=== PATIENT | male | born 1995 ===

== ENCOUNTER 2016-09-18 08:24 | Emergency (ER) | payer OTHER ==
[2016-09-18 08:37] VITALS: TEMP 98; O2SAT 100
[2016-09-18 08:51] VITALS: BMI 24.5
--- NOTE | 2016-09-18 09:36 | ED PDOC ---
Arrival/HPI - General Chief Complaint: Cough, Cold, Congestion Time Seen by Provider: 09/18/16 08:51 Historian: Patient - History of Present Illness Narrative History of Present Illness (Text): 09/18/16 09:32 Patient reports h/o seasonal allergies and asthma, reports several days of dyspnea and wheezing. Episode apparently precipitated by seasonal allergies. Reports not taking any medications for his symptoms due to lack of insurance. Patient has 1 previous history of emergency department visits to this hospital. Patient has no previous history of hospital admissions. Patient was never been intubated in the past. Otherwise, (-) fever; (-) cough; (-) sputum production, (-) chest pain. PMD none Past Medical History - Provider Review Nursing Documentation Reviewed: Yes - Pulmonary Hx Asthma: Yes - Psychiatric Hx Substance Use: Yes - Past Surgical History Past Surgical History: No Previous - Suicidal Assessment Feels Threatened In Home Enviroment: No Family/Social History - Physician Review Nursing Documentation Reviewed: Yes Family/Social History: No Known Family HX Smoking Status: Never Smoked Hx Alcohol Use: No Hx Substance Use: Yes Substance used: marijuana Hx Substance Use Treatment: No Allergies/Home Meds Allergies/Adverse Reactions: Allergies No Known Allergies Allergy (Verified 09/18/16 08:56) Review of Systems - Review of Systems Constitutional: Normal. absent: Fatigue, Weight Change, Fevers Eyes: Normal ENT: Normal. absent: Hearing Changes, Tinnitus, TMJ Pain Respiratory: Normal, Cough, Wheezing. absent: SOB, Sputum Cardiovascular: Normal. absent: Chest Pain, Palpitations, Edema Musculoskeletal: Normal. absent: Arthralgias, Back Pain, Neck Pain Skin: Normal. absent: Rash, Pruritis, Skin Lesions Physical Exam - Physical Exam Narrative Physical Exam (Text): 09/18/16 09:35 GENERAL APPEARANCE: Patient is awake, alert, oriented x 3, in no acute distress. SKIN: Warm, dry; (-) cyanosis. EYES: (-) conjunctival pallor. ENMT: Mucous membranes moist. Airway patent: (-) stridor. Pharynx: (-) swelling, (-) erythema. NECK: (-) tenderness, (-) stiffness, (-) lymphadenopathy. CHEST AND RESPIRATORY: (+) faint bilateral expiratory wheezing to the lower lobes; (-) rales, (-) rhonchi, (-) rub; breath sounds equal bilaterally. HEART AND CARDIOVASCULAR: (-) irregularity; (-) murmur, (-) gallop. ABDOMEN AND GI: Soft; (-) tenderness. EXTREMITIES: (-) deformity, (-) edema. NEURO AND PSYCH: Mental status as above; (-) focal findings. Vital Signs Temp Pulse Resp BP Pulse Ox 09/18/16 10:25 72 16 99/55 L 100 09/18/16 08:36 98.0 F 78 18 116/80 100 Medical Decision Making ED Course and Treatment: 09/18/16 09:36 21 yo M with h/o asthma and seasonal allergies presents with wheezing. Given duoneb x2 and prednisone 40 mg po. On re-evaluation, patient reports significant improvement, denies any SOB or chest pain. On exam, lungs are clear with no wheezing. Based on history, exam and diagnostic results plan will be for outpatient f/u with the clinic. Rx provided. Patient states he fully agrees with and understands discharge instructions. States that he agrees with the plan and disposition. Verbalized and repeated discharge instructions and plan. I have given the patient opportunity to ask any additional questions. Follow up with the clinic in 1-2 days without fail. Advised to take medication as prescribed, take otc zyrtec for his seasonal allergies. Return to the emergency room at any time for any new or worsening symptoms. - Medication Orders Current Medication Orders: Discontinued Medications Albuterol/Ipratropium (Duoneb 3 Mg/0.5 Mg (3 Ml) Ud) 3 ml IH Q15M MODESTA Stop: 09/18/16 10:01 Last Admin: 09/18/16 10:10 Dose: 3 ml Prednisone (Prednisone Tab) 40 mg PO STAT STA Stop: 09/18/16 09:32 Last Admin: 09/18/16 09:40 Dose: 40 mg - PA / CONVEYOR MAN / Resident Statement MD/DO has reviewed & agrees with the documentation as recorded. Disposition/Present on Arrival - Present on Arrival Any Indicators Present on Arrival: No History of DVT/PE: No History of Uncontrolled Diabetes: No Urinary Catheter: No History of Decub. Ulcer: No History Surgical Site Infection Following: None - Disposition Have Diagnosis and Disposition been Completed?: Yes Diagnosis: Asthma Disposition: HOME/ ROUTINE Disposition Time: 11:00 Patient Plan: Discharge Condition: IMPROVED Discharge Instructions (ExitCare): Asthma (ED), Allergic Rhinitis (ED) Print Language: ARABIC Additional Instructions: Thank you for letting us take care of you today. You were treated for asthma, history of seasonal allergies. The emergency medical care you received today was directed at your acute symptoms. If you were prescribed any medication, please fill it and take as directed. Take over the counter zyrtec for allergy symptoms. It may take several days for your symptoms to resolve. Return to the Emergency Department if your symptoms worsen, do not improve, or if you have any other problems. Please contact the neck in 2 days for re-evaluation and follow up. Bring any paperwork you were given at discharge with you along with any medications you are taking to your follow up visit. Our treatment cannot replace ongoing medical care by a primary care provider (PCP) outside of the emergency department. Thank you for allowing the [facility] team to be part of your care today. Prescriptions: Albuterol HFA [Ventolin HFA 90 mcg/actuation (8 g)] 2 puff IH [id number] #1 puff predniSONE [predniSONE Tab] 40 mg PO DAILY #8 tab Referrals: PCP,NO [Primary Care Provider] - Follow up with primary Forms: WORK NOTE
[2016-09-18] MEDS: Albuterol-Ipratrop 3 mg / 0.5 (3 ml) UD IH SCH ×2 (09:40→10:10)
[2016-09-18 11:11] VITALS: BP 99/55; PULSE 72; RESP 16
== END 2016-09-18 11:37 | disposition home or self-care (01) ==
LOC: ED 08:24
DX: J45.909 Unspecified asthma, uncomplicated (principal)

== ENCOUNTER 2017-09-04 23:21 | Emergency (ER) | payer SELFPAY ==
[2017-09-04 23:22] VITALS: BMI 24.5
[2017-09-04] MEDS: Albuterol-Ipratrop 3 mg / 0.5 (3 ml) UD IH SCH ×2 (23:40→23:53)
--- NOTE | 2017-09-04 23:48 | ED PDOC ---
Arrival/HPI <Aurelio Luong - Last Filed: 09/05/17 00:27> - General Historian: Patient - History of Present Illness Time/Duration: 4-6 hours Symptom Onset: Gradual Symptom Course: Unchanged Quality: Other (Itching) Activities at Onset: Light Context: Home <Miles Benitez - Last Filed: 09/05/17 14:30> - General Time Seen by Provider: 09/04/17 23:40 - History of Present Illness Narrative History of Present Illness (Text): 09/04/17 23:41 22 year old male, with past medical history of asthma and seasonal allergies, presents to the Emergency department complaining of itching eyes, throat, and coughing for past 4 to 5 days. Patient informs associated shortness of breath with wheezing since this evening prompting him to the Emergency department for evaluation. Patient denies any fever, chills, nausea, vomiting, diarrhea, chest pain, abdominal pain or any other complaints. Patient informs frequent travel for past year. (Miles Benitez) Past Medical History - Provider Review Nursing Documentation Reviewed: Yes - Pulmonary Hx Asthma: Yes - Psychiatric Hx Substance Use: Yes - Past Surgical History Past Surgical History: No Previous - Suicidal Assessment Feels Threatened In Home Enviroment: No <Miles Benitez - Last Filed: 09/05/17 14:30> Family/Social History - Physician Review Nursing Documentation Reviewed: Yes Family/Social History: No Known Family HX Smoking Status: Never Smoked Hx Alcohol Use: No Hx Substance Use: Yes Substance used: marijuana Hx Substance Use Treatment: No <Miles Benitez - Last Filed: 09/05/17 14:30> Allergies/Home Meds <Aurelio Luong - Last Filed: 09/05/17 00:27> <Miles Benitez - Last Filed: 09/05/17 14:30> Allergies/Adverse Reactions: Allergies No Known Allergies Allergy (Verified 09/18/16 08:56) Review of Systems - Physician Review All systems were reviewed & negative as marked: Yes - Review of Systems Constitutional: Normal. absent: Fevers Eyes: Other (Itching eyes) ENT: Other (Itching throat) Respiratory: SOB, Cough, Wheezing Cardiovascular: absent: Chest Pain Gastrointestinal: absent: Abdominal Pain, Diarrhea, Nausea, Vomiting <Miles Benitez - Last Filed: 09/05/17 14:30> Physical Exam Vital Signs Reviewed: Yes Temperature: Afebrile Blood Pressure: Normal Pulse: Regular Respiratory Rate: Normal Appearance: Positive for: Well-Appearing, Non-Toxic, Comfortable Pain Distress: None Mental Status: Positive for: Alert and Oriented X 3 - Systems Exam Head: Present: Atraumatic, Normocephalic Pupils: Present: PERRL, Other (no conjunctivitis) Extroacular Muscles: Present: EOMI Conjunctiva: Present: Normal Ears: Present: NORMAL TM, Normal Canal. No: Erythema Mouth: Present: Moist Mucous Membranes Pharnyx: No: ERYTHEMA, EXUDATE, TONSILS ENLARGED Nose (External): Present: Atraumatic. No: Abrasion, Contusion Nose (Internal): Present: Normal Inspection, No Active Bleeding, Rhinorrhea. No : Septal Hematoma, Epistaxis Neck: Present: Normal Range of Motion. No: Lymphadenopathy Respiratory/Chest: Present: Wheezes, Decreased Breath Sounds. No: Respiratory Distress, Accessory Muscle Use, Rales, Retracting, Rhonchi, Tachypneic, Tender to Palpation Cardiovascular: Present: Regular Rate and Rhythm, Normal S1, S2. No: Murmurs Abdomen: No: Tenderness, Distention, Peritoneal Signs Back: Present: Normal Inspection Upper Extremity: Present: Normal Inspection. No: Cyanosis, Edema Lower Extremity: Present: Normal Inspection. No: Edema Neurological: Present: GCS=15, CN II-XII Intact, Speech Normal, Motor Func Grossly Intact, Gait Normal, Memory Normal Skin: Present: Warm, Dry, Normal Color. No: Rashes Psychiatric: Present: Alert, Oriented x 3, Normal Insight, Normal Concentration <Miles Benitez - Last Filed: 09/05/17 14:30> Vital Signs Temp Pulse Resp BP Pulse Ox 09/04/17 23:48 98.0 F 66 18 114/61 100 Medical Decision Making <Aurelio Luong - Last Filed: 09/05/17 00:27> - RAD Interpretation Supervisor Stone: Radiologist <Miles Benitez - Last Filed: 09/05/17 14:30> ED Course and Treatment: 09/04/17 23:50 Impression: 22 year old male presents to the Emergency department for itching eyes, throat, cough, and shortness of breath associated with wheezing. Plan -- Benadryl/duonebs -- Steroids -- Chest X-ray -- Reassess and disposition 09/05/17 01:08 -Pt. has poor techniques on the using the peak floor and unable to complete one , walking around and feeling completely relief. -Wheezing resolved, feeling completely resoled, itching resolved. -Discharge home with xyzall, prednisone, flonase, azithromycin, albuterol MDI, stay hydrated, wear sunglasses, follow up with your own pmd and muffler tender within 2 days, return to the ER for any new or worsening signs or symptoms. ( Miles Benitez) - RAD Interpretation Radiology Orders: 09/04/17 23:49 CHEST PORTABLE [RAD] Stat 09/04/17 23:49 CHEST PORTABLE [RAD] Stat no active disease (Miles Benitez) - Medication Orders Current Medication Orders: Discontinued Medications Albuterol/Ipratropium (Duoneb 3 Mg/0.5 Mg (3 Ml) Ud) 3 ml IH Q15M MODESTA Stop: 09/05/17 00:16 Last Admin: 09/05/17 00:10 Dose: 3 ml Azithromycin (Zithromax) 500 mg PO STAT STA PRN Reason: Protocol Stop: 09/04/17 23:50 Last Admin: 09/04/17 23:55 Dose: 500 mg Diphenhydramine HCl (Benadryl) 50 mg IM STAT STA Stop: 09/04/17 23:50 Last Admin: 09/04/17 23:55 Dose: 50 mg IM Administration Charges Document 09/04/17 23:55 CNR (Rec: 09/04/17 23:55 CNR [id number]) Charges for Administration # of IM Administrations 1 Prednisone (Prednisone Tab) 60 mg PO STAT ONE Stop: 09/04/17 23:50 Last Admin: 09/04/17 23:55 Dose: 60 mg - PA / CHEMICAL TANK WORKER / Resident Statement / has reviewed & agrees with the documentation as recorded. <Aurelio Luong - Last Filed: 09/05/17 00:27> - PA / CHEMICAL TANK WORKER / Resident Statement / has reviewed & agrees with the documentation as recorded. - Scribe Statement The provider has reviewed the documentation as recorded by the Scribe <Miles Benitez - Last Filed: 09/05/17 14:30> - Scribe Statement Zhang Love. All medical record entries made by the Scribe were at my direction and personally dictated by me. I have reviewed the chart and agree that the record accurately reflects my personal performance of the history, physical exam, medical decision making, and the department course for this patient. I have also personally directed, reviewed, and agree with the discharge instructions and disposition. (Miles Bneitez) Disposition/Present on Arrival <Aurelio Luong - Last Filed: 09/05/17 00:27> - Present on Arrival Any Indicators Present on Arrival: No History of DVT/PE: No History of Uncontrolled Diabetes: No Urinary Catheter: No History of Decub. Ulcer: No History Surgical Site Infection Following: None - Disposition Have Diagnosis and Disposition been Completed?: Yes Disposition Time: 00:23 Patient Plan: Discharge <Miles Benitez - Last Filed: 09/05/17 14:30> - Disposition Diagnosis: Asthma exacerbation, Seasonal allergies Disposition: HOME/ ROUTINE Condition: IMPROVED Additional Instructions: -Discharge home with xyzall, prednisone, flonase, azithromycin, albuterol MDI, stay hydrated, wear sunglasses, follow up with your own pmd and muffler tender within 2 days, return to the ER for any new or worsening signs or symptoms. Prescriptions: Albuterol Sulfate [Proair Respiclick] 2 puff IH QID PRN #1 aer.[id number] PRN Reason: Other Azithromycin 250 mg PO DAILY #4 tab Fluticasone Propionate [Flonase] 1 spr NS DAILY #1 bot Levocetirizine Dihydrochloride [Xyzal] 5 mg PO DAILY PRN #14 tablet PRN Reason: Other Prednisone 50 mg PO DAILY #4 tab Referrals: Jorge Carolina DO [Staff Provider] - [place] up [place] [facility] [place] - Follow up with primary Forms: WORK NOTE
[2017-09-04 23:49] VITALS: BP 114/61; PULSE 66; RESP 18; TEMP 98; O2SAT 100
[2017-09-04] MEDS ORDERED: DiphenhydrAMINE 50 mg/ml Inj IM STA (23:49)
[2017-09-05] MEDS: Albuterol-Ipratrop 3 mg / 0.5 (3 ml) UD IH SCH (00:10)
--- NOTE | 2017-09-05 08:31 | RAD ---
HISTORY: medical clearance COMPARISON: No prior. FINDINGS: LUNGS: No active pulmonary disease. PLEURA: No significant pleural effusion identified, no pneumothorax apparent. CARDIOVASCULAR: Normal. OSSEOUS STRUCTURES: No significant abnormalities. VISUALIZED UPPER ABDOMEN: Normal. OTHER FINDINGS: None. IMPRESSION: No active disease.
== END 2017-09-05 01:14 | disposition home or self-care (01) ==
LOC: ED 23:21
DX: J45.901 Unspecified asthma with (acute) exacerbation (principal); J30.2 Other seasonal allergic rhinitis
CPT/HCPCS: 71045; 96372; 99284; J1200

== ENCOUNTER 2017-10-11 08:15 | Emergency (ER) | payer OTHER ==
[2017-10-11 08:15] VITALS: BMI 24.5
[2017-10-11] MEDS ORDERED: Albuterol 0.083% Inhal Sol (2.5 mg/3 mL) UD INH STA (08:38)
--- NOTE | 2017-10-11 08:45 | ED PDOC ---
Arrival/HPI <Gagandeep Savage - Last Filed: 10/11/17 10:11> - History of Present Illness Symptom Onset: Gradual Symptom Course: Worsening Activities at Onset: Rest Context: Home <Erik Hein - Last Filed: 10/11/17 13:47> - General Chief Complaint: Cough, Cold, Congestion Time Seen by Provider: 10/11/17 08:30 - History of Present Illness Narrative History of Present Illness (Text): 10/11/17 08:40 Pt is 22 yo M with PMH of asthma and seasonal allergies presents to ED with a shortness of breath and nasal congestion. Patient also complains of a dry cough. Patient states that on average he gets short of breath once a week and wakes up at night once a week with coughs Patient states that symptoms have been intermittent over the last week. Patient states that he came to the ED a few weeks ago and received a breathing treatment which helped his symptoms. Patient states that he has not had an inhaler for year due to cost. But states that he recently got insurance and will be able to get prescription medicines. Patient denies CP, n/v/d, abdominal pain, fever, chills, BACA, or dizziness. (Gagandeep Savage) Past Medical History - Infectious Disease Hx of Infectious Diseases: None - Pulmonary Hx Asthma: Yes - Psychiatric Hx Substance Use: Yes - Past Surgical History Past Surgical History: No Previous - Suicidal Assessment Feels Threatened In Home Enviroment: No <Gagandeep Savage - Last Filed: 10/11/17 10:11> - Provider Review Nursing Documentation Reviewed: Yes - Travel History Have you recently traveled outside [place] w/in the past 3 mons?: No - Past History Past History: No Previous <Erik Hein - Last Filed: 10/11/17 13:47> Family/Social History Family/Social History: No Known Family HX Smoking Status: Never Smoked Hx Alcohol Use: No Hx Substance Use: Yes Substance used: marijuana Hx Substance Use Treatment: No <Gagandeep Savage - Last Filed: 10/11/17 10:11> - Physician Review Nursing Documentation Reviewed: Yes <Erik Hein - Last Filed: 10/11/17 13:47> Allergies/Home Meds <Gagandeep Savage - Last Filed: 10/11/17 10:11> <Erik Hein - Last Filed: 10/11/17 13:47> Allergies/Adverse Reactions: Allergies No Known Allergies Allergy (Verified 10/11/17 08:24) Review of Systems - Physician Review All systems were reviewed & negative as marked: Yes (12 point ROS reviewed and is negative other than what is stated in HPI.) <JanetteGagandeep - Last Filed: 10/11/17 10:11> - Review of Systems Constitutional: Normal Eyes: Normal ENT: Rhinorrhea Respiratory: SOB, Cough Cardiovascular: Normal Gastrointestinal: Normal Genitourinary Male: Normal Musculoskeletal: Normal Skin: Normal Neurological: Normal Endocrine: Normal Hemo/Lymphatic: Normal Psychiatric: Normal <Erik Hein - Last Filed: 10/11/17 13:47> Physical Exam Vital Signs Reviewed: Yes Temperature: Afebrile Blood Pressure: Normal Pulse: Regular Respiratory Rate: Normal Appearance: Positive for: Non-Toxic Pain Distress: None Mental Status: Positive for: Alert and Oriented X 3 - Systems Exam Head: Present: Atraumatic, Normocephalic Pupils: Present: PERRL Extroacular Muscles: Present: EOMI Conjunctiva: Present: Normal Mouth: Present: Moist Mucous Membranes Neck: Present: Normal Range of Motion Respiratory/Chest: Present: Clear to Auscultation. No: Wheezes, Rales, Rhonchi Cardiovascular: Present: Regular Rate and Rhythm, Normal S1, S2. No: Murmurs, Rub, Gallop, Muffled Abdomen: No: Tenderness, Distention, Rebound, Guarding Upper Extremity: Present: Normal Inspection. No: Cyanosis, Edema Lower Extremity: Present: Normal Inspection. No: Edema Neurological: Present: GCS=15, CN II-XII Intact, Speech Normal Skin: Present: Warm, Dry, Normal Color. No: Rashes Psychiatric: Present: Alert, Oriented x 3, Normal Insight, Normal Concentration <Gagandeep Savage - Last Filed: 10/11/17 10:11> Vital Signs Temp Pulse Resp BP Pulse Ox 10/11/17 10:13 98.8 F 72 16 128/74 98 10/11/17 08:21 97.5 F L 85 18 130/78 99 Medical Decision Making <Gagandeep Savage - Last Filed: 10/11/17 10:11> Re-evaluation Time: 12:00 Reassessment Condition: Improved <Erik Hein - Last Filed: 10/11/17 13:47> ED Course and Treatment: 10/11/17 09:12 22 yo M presents with dyspnea and nasal congestion. Plan: - Albuterol - Claritin - Reassess and disposition 10/11/17 09:59 Discussed importance with close PMD follow up with patient and medication compliance. Patient acknowledged and agreed. Explained to patient if symptoms worsen, please return to ED. (Gagandeep Savage) A 22 year old male with shortness of breath and congestion. In agreement with resident note, which includes further HPI details. Patient was seen and evaluated with resident, came up with plan and treatment together. I performed the hx and physical exam of the patient and discussed their mgt with the RESIDENT. I reviewed the RESIDENT's NOTE and agree with the assessment and plan of care. lung re-exam: CTA b/l, no w/r/r, no accessory muscle use noted, no tachypenia pt is comfortable pt is not in any distress pt is made aware of his medical results pt is encouraged closing his windows when sleeping at night, prevent pollen exposure pt is encouraged outpt follow up pt will be discharged home (Erik Hein) - Medication Orders Current Medication Orders: Discontinued Medications Albuterol Sulfate (Albuterol 0.083% Inhal Mee (2.5 Mg/3 Ml) Ud) 2.5 mg INH STAT STA Stop: 10/11/17 08:39 Last Admin: 10/11/17 08:51 Dose: 2.5 mg Loratadine (Claritin) 10 mg PO ONCE ONE Stop: 10/11/17 08:39 Last Admin: 10/11/17 08:51 Dose: 10 mg Prednisone (Prednisone Tab) 40 mg PO STAT STA Stop: 10/11/17 09:26 Last Admin: 10/11/17 09:41 Dose: 40 mg - PA / RAPID TRANSIT OPERATOR / Resident Statement /DO has reviewed & agrees with the documentation as recorded. /DO has examined the patient and agrees with the treatment plan. <Erik Hein - Last Filed: 10/11/17 13:47> Disposition/Present on Arrival - Present on Arrival Any Indicators Present on Arrival: No History of DVT/PE: No History of Uncontrolled Diabetes: No Urinary Catheter: No History of Decub. Ulcer: No History Surgical Site Infection Following: None - Disposition Have Diagnosis and Disposition been Completed?: Yes Disposition Time: 10:11 <Gagandepe Savage - Last Filed: 10/11/17 10:11> - Disposition Patient Plan: Discharge <Erik Hein - Last Filed: 10/11/17 13:47> - Disposition Diagnosis: Asthma, Seasonal allergies Disposition: HOME/ ROUTINE Condition: STABLE Discharge Instructions (ExitCare): Seasonal Allergies (DC), Asthma, Adult (DC) Print Language: BHUTANESE Additional Instructions: 1. Take medications as prescribed 2. Follow up with PMD within 1 week 3. Return to ED if symptoms worsen ALONSO MARINELLI, thank you for letting us take care of you today. Your provider was Erik Hein MD and you were treated for ASTHMA/ALLERGIES. The emergency medical care you received today was directed at your acute symptoms. If you were prescribed any medication, please fill it and take as directed. It may take several days for your symptoms to resolve. Return to the Emergency Department if your symptoms worsen, do not improve, or if you have any other problems. Please contact your doctor or call one of the physicians/clinics you have been referred to that are listed on the Patient Visit Information form that is included in your discharge packet. Bring any paperwork you were given at discharge with you along with any medications you are taking to your follow up visit. Our treatment cannot replace ongoing medical care by a primary care provider outside of the emergency department. Thank you for allowing the [facility] team to be part of your care today. Prescriptions: Albuterol HFA [Ventolin HFA 90 mcg/actuation (8 g)] 2 puff IH [id number] PRN #1 unit PRN Reason: Shortness Of Breath Fluticasone Nasal [Flonase] 1 spr NS DAILY PRN #1 unit PRN Reason: Allergy Symptoms Loratadine [Claritin] 10 mg PO DAILY #15 tab Prednisone 50 mg PO DAILY #5 tablet Referrals: PCP,NO [Family Provider] - Follow up with primary Forms: [employer] (Icelandic), WORK NOTE
[2017-10-11 10:14] VITALS: BP 128/74; PULSE 72; RESP 16; TEMP 98.8; O2SAT 98
== END 2017-10-11 10:13 | disposition home or self-care (01) ==
LOC: ED 08:15
DX: J45.909 Unspecified asthma, uncomplicated (principal); J30.2 Other seasonal allergic rhinitis